=== PATIENT | male | born 1990 | race Hispanic/Latino ===

== ENCOUNTER 2016-06-28 11:42 | Emergency (ER) | payer OTHER ==
--- NOTE | 2016-06-28 11:58 | ED GENERAL ADULT ---
History of Present Illness General Chief Complaint: General Adult Stated Complaint: ALLERGIC REACTION TO MED, BACK PAIN ?KIDNEY STONE Source: patient Exam Limitations: no limitations Vital Signs & Intake/Output Vital Signs & Intake/Output Vital Signs Date Time Temp Pulse Resp B/P Pulse O2 O2 Flow FiO2 Ox Delivery Rate 06/28 1745 97.8 76 20 121/68 98 Room Air Room Air 06/28 1617 98.5 54 18 126/58 98 Room Air 06/28 1152 96.2 50 22 168/101 100 Allergies Coded Allergies: aspirin (06/28/16) Reconcile Medications Propranolol HCl 20 MG TABLET 1 TAB PO TID UNKNOWN (Reported) Propylthiouracil 50 MG TABLET 1 TAB PO DAILY THYROID (Reported) Triage Note: PER PT NOT FEELING WELL, APPEARS PALE VS SL JAUNDICED, PT REPORTS BEING POISONED BY THYROID MEDICATION SKIN COOL Triage Nurses Notes Reviewed? yes Onset: Abrupt Duration: constant Timing: single episode today Severity: moderate Severity Numbers: 5 HPI: Patient is a 25-year-old male with a past medical history of Graves' disease who presents emergency room with acute onset today of generalized weakness fatigue nausea and right flank and back pain. Patient states that he is compliant with his medications of propranolol and propylthiouracil who states that he is currently being evaluated for possible radioiodine intervention. Last ultrasound of his thyroid was approximate 6 months ago with unremarkable findings. Patient is able tolerate by mouth Patient believes that he is poisoned due to previous adverse reactions to METHIMAZOL however his medications administered have been prescribed for approximately 9 months or longer Patient is complaining of right upper quadrant point tenderness and family member states that he looks yellow colored Patient states that bowel movement yesterday was Kareem-colored (HUANG DECKER) Past History Travel History Traveled to [place] past 21 day No Medical History Any Pertinent Medical History? see below for history Neurological: NONE EENT: NONE Cardiovascular: HEART Respiratory: NONE Gastrointestinal: NONE Hepatic: NONE Renal: NONE Musculoskeletal: NONE Psychiatric: NONE Endocrine: THYROID Surgical History Surgical History: non-contributory Psychosocial History What is your primary language Mongolian Tobacco Use: Current Daily Use Daily Tobacco Use Amount/Type: => 5 Cigarettes daily Illicit Drug Use: marijuana Family History Hx Contributory? No (HUANG DECKER) Review of Systems Review of Systems Constitutional: Reports: see HPI. EENTM: Reports: no symptoms. Respiratory: Reports: no symptoms. Cardiovascular: Reports: no symptoms. GI: Reports: see HPI. Genitourinary: Reports: no symptoms. Musculoskeletal: Reports: no symptoms. Skin: Reports: no symptoms. Neurological/Psychological: Reports: no symptoms. Hematologic/Endocrine: Reports: no symptoms. Immunologic/Allergic: Reports: no symptoms. All Other Systems: Reviewed and Negative (HUANG DECKER) Physical Exam Physical Exam General Appearance: no apparent distress Comments: Well-developed well-nourished person in no acute distress HEENT: Normal EENT exam, extraocular motion intact, no nystagmus. Pupils equally round and reactive to light and accommodation. Nose is atraumatic. External auditory canal and Tympanic membranes clear. Pharynx normal. No swelling or edema. Neck: Supple, no lymphadenopathy, normal range of motion without pain or tenderness Back: Nontender, no CVA tenderness. Cardiovascular: Bradycardia no murmurs rubs or gallops, normal JVP Respiratory: Chest nontender. No respiratory distress.breath sounds clear to auscultation bilaterally Abdomen: Soft, right upper quadrant tenderness noted nondistended, no appreciable organomegaly. Normal bowel sounds. No ascites Extremity: No edema, no calf tenderness to palpation, normal and equal pulses. Neuro: Alert oriented x3, motor sensory normal, cranial nerves II through XII grossly intact. Skin: MILD Icterus noted. Psych: Mood and affect is normal, memory and judgment is normal. Core Measures ACS in differential dx? No CVA/TIA Diagnosis: No Severe Sepsis Present: No Septic Shock Present: No (HUANG DECKER) Progress Differential Diagnoses I considered the following diagnoses in my evaluation of the patient: [ Hypothyroidism, cholecystitis, GILBERT syndrome hepatitis, cholangitis, thyrotoxicosis, Graves' disease, appendicitis, thyroid storm, autoimmune hepatitis, pancreatitis, viral syndrome,] Plan of Care: Orders Procedure Date/time Status Add-on Test (ER Only) 06/28 1605 Active Add-on Test (ER Only) 06/28 1538 Active LACTIC ACID 06/28 1504 Active Add-on Test (ER Only) 06/28 1446 Active Add-on Test (ER Only) 06/28 1305 Active Add-on Test (ER Only) 06/28 1301 Active URINE DRUG SCREEN FOR ER ONLY 06/28 1244 Complete TYPE & SCREEN (NOT X-MATCH) 06/28 1230 Complete ACETOMINOPHEN 06/28 1220 Active TOTAL TRIODOTHYROXINE 06/28 1220 Active PARTIAL THROMBOPLASTIN TIME 06/28 1220 Complete PROTHROMBIN TIME 06/28 1220 Complete HEPATITIS PANEL 06/28 1220 Active DIRECT BILIRUBIN 06/28 1220 Active Telemetry/Clip And Hanger Attacher 06/28 1207 Active EKG 06/28 1207 Active URINALYSIS 06/28 1204 Complete THYROID STIMULATING HORMONE 06/28 1204 Active T3 UPTAKE (THYROXINE BIND CAP) 06/28 1204 Active LIPASE 06/28 1204 Active LACTIC ACID 06/28 1204 Active FREE T4 06/28 1204 Active WESTERGREN SED RATE 06/28 1204 Complete C-REACTIVE PROTEIN 06/28 1204 Active COMPREHENSIVE METABOLIC PANEL 06/28 1204 Active CBC WITHOUT DIFFERENTIAL 06/28 120 Complete AMYLASE 06/28 1204 Active Laboratory Tests 06/28/16 1531: Urine Opiates Screen < 100.00, Methadone Screen < 40, Barbiturate Screen < 60, Ur Phencyclidine Scrn < 6.00, Amphetamines Screen < 100, U Benzodiazepines Scrn < 85, Urine Cocaine Screen < 50, Urine Cannabis Screen > 80.00 H, Urine Color STRAW, Urine Clarity CLEAR, Urine pH 6.0, Ur Specific [place] 1.010, Urine Protein NEG, Urine Ketones 15 H, Urine Nitrite NEG, Urine Bilirubin NEG, Urine Urobilinogen 0.2, Ur Leukocyte Esterase NEG, Ur Microscopic EXAM NOT REQUIRED, Urine Hemoglobin NEG, Urine Glucose NEG 06/28/16 1220: Anion Gap 15, Estimated GFR > 60, BUN/Creatinine Ratio 20.0, Glucose 168 H, Lactic Acid 1.4, Calcium 9.8, Total Bilirubin 4.8 H, Direct Bilirubin 0.6 H, AST 24, ALT 38, Alkaline Phosphatase 155 H, C-Reactive Prot, Quant < 0.5, Total Protein 8.4 H, Albumin 5.1 H, Globulin 3.3, Albumin/Globulin Ratio 1.5, Amylase 88, Lipase 112, TSH < 0.015 L, Free T4 0.21 L, Total T3 2.02 H, Thyroxine Binding Indx 26.3, PT 13.3 H, INR 1.27 H, APTT 38 H, CBC w Diff NO MAN DIFF REQ, RBC 5.96, MCV 78.5 L, MCH 25.7 L, RDW 15.2 H, MPV 8.5, Gran % 56.1, Lymphocytes % 37.3, Monocytes % 5.5, Eosinophils % 0.8, Basophils % 0.3, Absolute Granulocytes 3.3, Absolute Lymphocytes 2.2, Absolute Monocytes 0.3, Absolute Eosinophils 0, Absolute Basophils 0, PUBS MCHC 32.8 L, ESR [place] 1, Hepatitis A IgM Ab Pending, Hep Bs Antigen Pending, Hep B Core IgM Ab Conf Pending, Hepatitis C Antibody Pending, Acetaminophen < 10.0 L 06/28/16 1206: Thyroxine Binding Indx Cancelled Patient currently is in no apparent distress and has noted bradycardia telemetry monitored noted to have improvement of bradycardia in which patient was in the emergency room for 5-6 hours in which he then improved to 60-[address] Powell also was called on numerous occasions in which she was aware of patient's thyroid function tests and states that patient could have Gilbert syndrome. Patient had unremarkable imaging of ultrasound and CT scan however patient did have elevated bilirubin however this was noted by previous bilirubin levels in the past 2 months. Patient was strongly advised to follow up with foreign language instructor for further evaluation of this finding. Dr. Powell also advised patient to begin propanolol twice a day instead of 3 times a day. he has a follow-up appointment next week with primary care. And Dr. Powell also advised patient to follow-up in his office in the next week and patient can be safely discharged. Patient on discharge looks well no apparent distress nontoxic-appearing and will comply with discharge instructions and had no questions DISCUSSED disposition plan with DR. GRACE who agrees pATIENT'S BRADYCARDIA WAS MOST LIKELY MEDICATION INDUCED PROPANOLOL and on discharge she had 62 bpm (MARIANGEL WINN,HUANG) Diagnostic Imaging: Viewed by Me: CT Scan, Ultrasound. Radiology Impression: no acute abnormality Initial ED EK BPM NORMAL SINUS RHYTHM Comments: PATIENT: MIKHAIL MOORE PRESENT AGE: 25 PATIENT ACCOUNT NO: [id number] : 92 LOCATION: [facility] ORDERING PHYSICIAN: HUANG IWNN SERVICE DATE: 06/28/16-5435 EXAM TYPE: US - US-LIMITED ABDOMEN EXAMINATION: US ABDOMEN LIMITED CLINICAL INFORMATION: Elevated bilirubin. Jaundice. Right flank pain x2-3 days. COMPARISON: No relevant prior imaging available. TECHNIQUE: Real-time imaging of the right upper quadrant abdominal viscera. FINDINGS: PANCREAS: Normal. LIVER: Normal. The liver demonstrates normal size, contour and echogenicity. No focal lesion or intrahepatic biliary duct dilatation. GALLBLADDER: Normal. The gallbladder is physiologically distended without evidence of stones, sludge, polyps, wall thickening or pericholecystic fluid. COMMON BILE DUCT: Normal in caliber measuring 0.4 cm in diameter. RIGHT KIDNEY: Normal. No hydronephrosis. No nephrolithiasis. There is a 2.3 cm cyst involving the upper pole the right kidney. Otherwise no parenchymal lesions. The kidney measures 10.9 cm in maximum dimension. FREE FLUID: None. IMPRESSION: Unremarkable right upper quadrant ultrasound. PATIENT: MIKHAIL MOORE PRESENT AGE: 25 PATIENT ACCOUNT NO: [id number] : 92 LOCATION: [facility] ORDERING PHYSICIAN: HUANG WINN SERVICE DATE: 06/28/162444 EXAM TYPE: CAT - CT ABD & PELVIS W IV CONTRAST EXAMINATION: CT ABDOMEN AND PELVIS WITH CONTRAST CLINICAL INFORMATION: Abdominal pain. Elevated bilirubin. COMPARISON: Abdominal ultrasound 06/28/2016. TECHNIQUE: Multidetector volumetric imaging was performed of the abdomen and pelvis before and after the IV administration of 95 mL of Optiray 320 intravenous contrast. Sagittal and coronal reformatted images were obtained on the technologist's workstation. DLP: 263.37 mGy-cm FINDINGS: LUNG BASES: Lung bases are clear. There is no pleural or pericardial effusion. LIVER, GALLBLADDER, AND BILIARY TREE: Liver attenuation is homogeneous. There is no discrete hepatic mass. The gallbladder is unremarkable with no evidence of radiopaque gallstones, gallbladder wall thickening, or obvious pericholecystic inflammatory changes. PANCREAS: Unremarkable. SPLEEN: Unremarkable. ADRENAL GLANDS: Unremarkable. KIDNEYS AND URETERS: Kidneys demonstrate symmetric corticomedullary enhancement. There is no hydronephrosis. No abnormal perinephric inflammation or collection. No abnormal mass or calcification along the expected course of the right or left ureter. BLADDER: The urinary bladder is physiologically distended. GASTROINTESTINAL TRACT: The stomach is decompressed. Small bowel and colon are unremarkable. ABDOMINAL WALL: The abdominal wall is intact. LYMPH NODES: No abnormal mesenteric or retroperitoneal adenopathy. VASCULAR: The abdominal aorta and inferior vena cava are unremarkable. PELVIC VISCERA: The prostate gland is normal. There is no perirectal or presacral inflammation. OSSEOUS STRUCTURES: There is no acute osseous finding. Specifically no worrisome lytic or blastic osseous lesion. IMPRESSION: Normal CT scan of the abdomen and pelvis. (HUANG DECKER) Departure Departure Disposition: HOME OR SELF CARE Condition: Stable Clinical Impression Primary Impression: Elevated bilirubin Secondary Impressions: Graves disease, Viral syndrome Referrals: PATIENT HAS NO PRIMARY CARE DR (PCP/Family) Additional Instructions: As discussed follow-up tomorrow with your ciso to make an appointment for further evaluation treatment and follow-up tomorrow with COLLECTIONS AND ARCHIVES DIRECTOR Dr. Viera for further evaluation and treatment. Follow-up with your primary care doctor's appointment you have one next week. Continue home medications except begin using the propanolol twice a day instead of 3 times a day. If symptoms worsen return to emergency room. Departure Forms: Customer Survey General Discharge Information (HUANG DECKER) PA/TURNER MACHINE OPERATOR Co-Sign Statement Statement: ED Attending supervision documentation- [] I saw and evaluated the patient. I have also reviewed all the pertinent lab results and diagnostic results. I agree with the findings and the plan of care as documented in the PA's/TURNER MACHINE OPERATOR's documentation. [X] I have reviewed the ED Record and agree with the PA's/TURNER MACHINE OPERATOR's documentation. [] Additions or exceptions (if any) to the PAs/TURNER MACHINE OPERATOR's note and plan are summarized below: [] (LESLY COLLIER,TALHA) Critical Care Note Critical Care Note Critical Care Time: non-applicable (HUANG DECKER)
[2016-06-28 12:32] LABS: ABSOLUTE BASOPHIL COUNT 0 /CUMM (0.0-0.2); ABSOLUTE EOSINOPHIL COUNT 0 /CUMM (0.0-0.7); ABSOLUTE GRANULOCYTE CT 3.3 /CUMM (1.4-6.5); ABSOLUTE LYMPH COUNT 2.2 /CUMM (1.2-3.4); ABSOLUTE MONOCYTE COUNT 0.3 /CUMM (0.10-0.60); BASOPHIL % 0.3 % (0.0-2.0); EOSINOPHIL % 0.8 % (0-5); GRANULOCYTE % 56.1 % (42.2-75.2); HEMATOCRIT 46.7 % (42-52); MEAN CORPUSCULAR HGB 25.7 PG (27.0-31.0); MEAN CORPUSCULAR HGB CONC 32.8 G/DL (33.0-37.0); MEAN CORPUSCULAR VOLUME 78.5 FL (80.0-94.0); MEAN PLATELET VOLUME 8.5 FL (7.4-10.4); PLATELET COUNT 219 /CUMM (130-400); RBC DISTRIBUTION WIDTH 15.2 % (11.5-14.5); RED BLOOD CELL CT 5.96 /CUMM (4.70-6.10); WHITE BLOOD CELL COUNT 5.9 /CUMM (4.8-10.8)
[2016-06-28] MEDS ORDERED: PROPRANOLOL HCL20 M1 PO (12:50)
[2016-06-28] MEDS ORDERED: PROPYLTHIOURACI50 M1 PO (12:51)
[2016-06-28 13:41] LABS: PT 13.3 SEC (9.4-12.5); PTT 38 SEC (25-37)
--- NOTE | 2016-06-28 14:54 | ULTRASOUND REPORT ---
EXAMINATION: US ABDOMEN LIMITED CLINICAL INFORMATION: Elevated bilirubin. Jaundice. Right flank pain x2-3 days. COMPARISON: No relevant prior imaging available. TECHNIQUE: Real-time imaging of the right upper quadrant abdominal viscera. FINDINGS: PANCREAS: Normal. LIVER: Normal. The liver demonstrates normal size, contour and echogenicity. No focal lesion or intrahepatic biliary duct dilatation. GALLBLADDER: Normal. The gallbladder is physiologically distended without evidence of stones, sludge, polyps, wall thickening or pericholecystic fluid. COMMON BILE DUCT: Normal in caliber measuring 0.4 cm in diameter. RIGHT KIDNEY: Normal. No hydronephrosis. No nephrolithiasis. There is a 2.3 cm cyst involving the upper pole the right kidney. Otherwise no parenchymal lesions. The kidney measures 10.9 cm in maximum dimension. FREE FLUID: None. IMPRESSION: Unremarkable right upper quadrant ultrasound.
--- NOTE | 2016-06-28 15:44 | CT SCAN REPORT ---
EXAMINATION: CT ABDOMEN AND PELVIS WITH CONTRAST CLINICAL INFORMATION: Abdominal pain. Elevated bilirubin. COMPARISON: Abdominal ultrasound 06/28/2016. TECHNIQUE: Multidetector volumetric imaging was performed of the abdomen and pelvis before and after the IV administration of 95 mL of Optiray 320 intravenous contrast. Sagittal and coronal reformatted images were obtained on the technologist's workstation. DLP: 263.37 mGy-cm FINDINGS: LUNG BASES: Lung bases are clear. There is no pleural or pericardial effusion. LIVER, GALLBLADDER, AND BILIARY TREE: Liver attenuation is homogeneous. There is no discrete hepatic mass. The gallbladder is unremarkable with no evidence of radiopaque gallstones, gallbladder wall thickening, or obvious pericholecystic inflammatory changes. PANCREAS: Unremarkable. SPLEEN: Unremarkable. ADRENAL GLANDS: Unremarkable. KIDNEYS AND URETERS: Kidneys demonstrate symmetric corticomedullary enhancement. There is no hydronephrosis. No abnormal perinephric inflammation or collection. No abnormal mass or calcification along the expected course of the right or left ureter. BLADDER: The urinary bladder is physiologically distended. GASTROINTESTINAL TRACT: The stomach is decompressed. Small bowel and colon are unremarkable. ABDOMINAL WALL: The abdominal wall is intact. LYMPH NODES: No abnormal mesenteric or retroperitoneal adenopathy. VASCULAR: The abdominal aorta and inferior vena cava are unremarkable. PELVIC VISCERA: The prostate gland is normal. There is no perirectal or presacral inflammation. OSSEOUS STRUCTURES: There is no acute osseous finding. Specifically no worrisome lytic or blastic osseous lesion. IMPRESSION: Normal CT scan of the abdomen and pelvis.
[2016-06-28 17:45] VITALS: BP 121/68
== END 2016-06-28 17:46 ==
LOC: ERH 11:42
PROVIDERS: Physician Assistant
DX: E05.00 Thyrotoxicosis with diffuse goiter without thyrotoxic crisis or storm (principal); B34.9 Viral infection, unspecified; R79.89 Other specified abnormal findings of blood chemistry
CPT/HCPCS: 74177; 80307; 81003; 93005; 93010; 96374; G0480; J2405

== ENCOUNTER 2016-06-29 19:11 | Emergency (ER) | payer OTHER ==
[~2016-06-29 19:11] MED LIST: PROPRANOLOL HCL20 M1 PO; PROPYLTHIOURACI50 M1 PO
== END 2016-06-29 19:56 | disposition admitted as inpatient to this hospital (09) ==
LOC: ERH 19:11
DX: R07.9 Chest pain, unspecified (principal)
CPT/HCPCS: 93005; 93010; 99281

== ENCOUNTER 2016-08-10 23:01 | Emergency (ER) | payer OTHER | END 2016-08-10 23:37 | disposition admitted as inpatient to this hospital (09) | LOC: ERH 23:01 | DX: R00.2 Palpitations (principal); R68.83 Chills (without fever); R61 Generalized hyperhidrosis ==

== ENCOUNTER 2016-10-02 23:37 | Emergency (ER) | payer OTHER ==
[~2016-10-02] VITALS: Ht 180.3 cm; Wt 69.9 kg
--- NOTE | 2016-10-02 23:50 | ED GENERAL ADULT ---
History of Present Illness General Chief Complaint: General Adult Stated Complaint: SORE THROAT,RASH ,WEIGHT LOSS Source: patient, old records Exam Limitations: no limitations Vital Signs & Intake/Output Vital Signs & Intake/Output Vital Signs Date Time Temp Pulse Resp B/P B/P Pulse O2 O2 Flow FiO2 Mean Ox Delivery Rate 10/03 0026 98 Room Air 10/03 0011 97.5 98 16 134/65 98 Room Air Allergies Coded Allergies: methimazole (Mild, HIVES 10/03/16) aspirin (NOSEBLEEDS 10/03/16) Reconcile Medications Propranolol HCl 20 MG TABLET 1 TAB PO TID UNKNOWN (Reported) Propylthiouracil 50 MG TABLET 1 TAB PO DAILY THYROID (Reported) Triage Nurses Notes Reviewed? yes HPI: Patient recently had radioactive iodine for Graves' disease. Patient was also on prednisone for exophthalmos. Patient went to [facility] last week. While down there he developed a rash on both of his elbows as well as his lower abdomen. The rash is itchy. Patient was concerned that it might be related to the prednisone so he stopped the prednisone when he only had 10 mg left. Patient continues to have the rash comes in for evaluation. Patient is also concerned because he was lost 10 pounds since he had radioactive iodine. Past History Medical History Any Pertinent Medical History? see below for history Neurological: NONE EENT: NONE Cardiovascular: HEART Respiratory: NONE Gastrointestinal: NONE Hepatic: NONE Renal: NONE Musculoskeletal: NONE Psychiatric: NONE Endocrine: THYROID Surgical History Surgical History: non-contributory Psychosocial History What is your primary language Filipino Tobacco Use: Never used ETOH Use: occasional use Illicit Drug Use: denies illicit drug use Family History Hx Contributory? No Review of Systems Review of Systems Constitutional: Reports: see HPI, unexplained weight loss. EENTM: Reports: no symptoms. Respiratory: Reports: no symptoms. Cardiovascular: Reports: no symptoms. GI: Reports: no symptoms. Genitourinary: Reports: no symptoms. Musculoskeletal: Reports: no symptoms. Skin: Reports: see HPI, rash. Neurological/Psychological: Reports: see HPI, anxiety. Hematologic/Endocrine: Reports: no symptoms. Immunologic/Allergic: Reports: no symptoms. All Other Systems: Reviewed and Negative Physical Exam Physical Exam General Appearance: well developed/nourished, alert, awake, anxious, mild distress Head: atraumatic, normal appearance Eyes: Bilateral: PERRL, EOMI. Ears, Nose, Throat: normal pharynx, normal ENT inspection Neck: normal inspection, supple, full range of motion Respiratory: normal breath sounds, chest non-tender, no respiratory distress, lungs clear Cardiovascular: regular rate/rhythm, normal peripheral pulses Gastrointestinal: normal bowel sounds, soft, non-tender, no organomegaly Back: normal inspection, normal range of motion Extremities: normal inspection, normal capillary refill, normal range of motion, no edema Neurologic/Psych: no motor/sensory deficits, awake, alert, oriented x 3, normal gait, normal mood/affect Skin: intact, normal color, warm/dry Lymphatic: no anterior cervical [place] Core Measures ACS in differential dx? No CVA/TIA Diagnosis: No Severe Sepsis Present: No Septic Shock Present: No Progress Differential Diagnoses I considered the following diagnoses in my evaluation of the patient: [ Hyperthyroid, electrolyte abnormality] Plan of Care: Orders Procedure Date/time Status THYROID STIMULATING HORMONE 10/02 2349 Complete FREE T4 10/02 2349 Complete COMPREHENSIVE METABOLIC PANEL 10/02 2349 Complete CBC WITHOUT DIFFERENTIAL 10/02 2349 Complete Laboratory Tests 10/03/16 0015: Anion Gap 12, Estimated GFR > 60, BUN/Creatinine Ratio 30.0 H, Glucose 167 H, Calcium 9.1, Total Bilirubin 3.7 H, AST 18, ALT 45, Alkaline Phosphatase 75, Total Protein 6.5, Albumin 4.0, Globulin 2.5, Albumin/Globulin Ratio 1.6, TSH < 0.015 L, Free T4 3.68 H, CBC w Diff NO MAN DIFF REQ, RBC 4.63 L, MCV 80.9, MCH 27.4, RDW 13.1, MPV 7.9, Gran % 55.5, Lymphocytes % 30.2, Monocytes % 12.3 H, Eosinophils % 1.7, Basophils % 0.3, Absolute Granulocytes 2.3, Absolute Lymphocytes 1.2, Absolute Monocytes 0.5, Absolute Eosinophils 0.1, Absolute Basophils 0, PUBS MCHC 33.9 Initial ED EKG: none Departure Departure Disposition: HOME OR SELF CARE Condition: Stable Clinical Impression Primary Impression: Hyperthyroidism Secondary Impressions: Contact dermatitis Referrals: TANA COLLIER,GISELA LOPEZ MD,DEBRA (PCP/Family) Additional Instructions: RETURN FOR ANY CONCERNS Departure Forms: Customer Survey General Discharge Information Prescriptions: Current Visit Scripts Hydrocortisone Valerate 1 BRIAN TOP BID #15 GM apply to affected area(s) Critical Care Note Critical Care Note Critical Care Time: non-applicable
[2016-10-03 00:11] VITALS: BP 134/65
[2016-10-03 00:55] LABS: ABSOLUTE BASOPHIL COUNT 0 /CUMM (0.0-0.2); ABSOLUTE EOSINOPHIL COUNT 0.1 /CUMM (0.0-0.7); ABSOLUTE GRANULOCYTE CT 2.3 /CUMM (1.4-6.5); ABSOLUTE LYMPH COUNT 1.2 /CUMM (1.2-3.4); ABSOLUTE MONOCYTE COUNT 0.5 /CUMM (0.10-0.60); BASOPHIL % 0.3 % (0.0-2.0); EOSINOPHIL % 1.7 % (0-5); GRANULOCYTE % 55.5 % (42.2-75.2); HEMATOCRIT 37.4 % (42-52); MEAN CORPUSCULAR HGB 27.4 PG (27.0-31.0); MEAN CORPUSCULAR HGB CONC 33.9 G/DL (33.0-37.0); MEAN CORPUSCULAR VOLUME 80.9 FL (80.0-94.0); MEAN PLATELET VOLUME 7.9 FL (7.4-10.4); PLATELET COUNT 146 /CUMM (130-400); RBC DISTRIBUTION WIDTH 13.1 % (11.5-14.5); RED BLOOD CELL CT 4.63 /CUMM (4.70-6.10); WHITE BLOOD CELL COUNT 4.1 /CUMM (4.8-10.8)
[2016-10-03] MEDS ORDERED: HYDROCORTISONE15 GM TOP (01:40)
== END 2016-10-03 01:52 ==
LOC: ERH 23:37
PROVIDERS: Emergency Medicine
DX: E05.90 Thyrotoxicosis, unspecified without thyrotoxic crisis or storm (principal); L25.9 Unspecified contact dermatitis, unspecified cause